=== PATIENT | male | born 1965 | race Two or more races ===

== ENCOUNTER → 2016-07-06 | Outpatient (CLI) | payer OTHER ==
[2016-07-06 11:53] LABS: GFR 78.5
[2016-07-07 03:13] LABS: RHEUMATOID FACTOR <10.0 IU/mL (0.0-13.9)
== END | disposition home or self-care (01) ==
LOC: LAB 11:21
PROVIDERS: ATTEND Psychiatry & Neurology Neurology
DX: G62.89 Other specified polyneuropathies (principal)
CPT/HCPCS: 36415; 82565; 84443; 84520; 86431

== ENCOUNTER → 2016-08-10 | Outpatient (CLI) | payer OTHER ==
--- NOTE | 2016-08-10 13:23 | RAD ---
PROCEDURE MR of the left knee HISTORY Chronic left knee pain. History of ACL graft tear. TECHNIQUE Standard noncontrast images are obtained. COMPARISON None FINDINGS Degenerative tear of the medial meniscus. Mild signal within the lateral meniscus with probable mild degenerative tearing. There are changes of anterior cruciate ligament reconstruction with surgical artifact signal at femoral and tibial tunnels. Graft is not visualized, compatible with a recurrent rupture. The lack of much edema or pivot-shift bone injuries suggest chronic duration. Posterior cruciate ligament intact. Medial collateral ligament intact. Iliotibial band unremarkable. Fibular collateral ligament intact. Biceps femoris and popliteus tendons are intact. Extensor mechanism is intact. Trace joint effusion. No evidence of osteochondral loose body. There is tricompartmental osteoarthritis. Chondromalacia is severe at the medial joint compartment and patellofemoral joint compartment. Chondromalacia is severe at the posterior aspect of the lateral joint compartment. No bone lesion. No acute fracture. Small septated Oswald cyst. IMPRESSION 1. Medial meniscal tear. 2. Probable lateral meniscal tear. 3. 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 4. Severe primary osteoarthritis. Electronically signed by: Kane Hassan MD (Aug 10, 2016 13:22:21)
== END | disposition home or self-care (01) ==
LOC: MRI 07:29
PROVIDERS: ATTEND Orthopaedic Surgery Sports Medicine
DX: T84.89XA Other specified complication of internal orthopedic prosthetic devices, implants and grafts, initial encounter (principal)
CPT/HCPCS: 73721

== ENCOUNTER → 2017-01-07 | Outpatient (CLI) | payer OTHER ==
[2017-01-07 16:56] LABS: CREATININE 1.3 mg/dL (0.7-1.3); GFR 57.7
== END | disposition home or self-care (01) ==
LOC: LAB 16:23
PROVIDERS: ATTEND Psychiatry & Neurology Neurology
DX: G62.89 Other specified polyneuropathies (principal)
CPT/HCPCS: 36415; 82565; 84450; 84460; 84520

== ENCOUNTER → 2017-04-06 | Outpatient (CLI) | payer OTHER ==
[2017-04-06 17:08] LABS: ALT (SGPT) 74 U/L (16-63); AST (SGOT) 37 U/L (15-37); CREATINE KINASE 189 U/L (39-308)
== END | disposition home or self-care (01) ==
LOC: LAB 16:30
PROVIDERS: ATTEND Psychiatry & Neurology Neurology
DX: R74.0 Nonspecific elevation of levels of transaminase and lactic acid dehydrogenase [LDH] (principal); M19.90 Unspecified osteoarthritis, unspecified site
CPT/HCPCS: 36415; 82550; 84450; 84460

== ENCOUNTER → 2017-10-26 | Outpatient (CLI) | payer BC, OTHER ==
[2017-10-26 17:40] LABS: VITAMIN-B12 505 pg/mL (247-911)
[2017-10-26 17:53] LABS: HEPATITIS B SURFACE AG Nonreactive (Nonreactive)
[2017-10-26 18:21] LABS: HEPATITIS C AB Nonreactive (Nonreactive)
[2017-10-26 18:28] LABS: HEPATITIS B SURFACE AB Nonreactive
[2017-10-29 09:24] LABS: ARSENIC UR 14 ug/L (0-50); CADMIUM UR None Detected ug/L (None detected); LEAD UR None Detected ug/L (0-49); MERCURY UR None Detected ug/L (0-19)
== END | disposition home or self-care (01) ==
LOC: LAB 16:15
DX: G62.89 Other specified polyneuropathies (principal)
CPT/HCPCS: 36415; 82306; 82607; 86704; 86706; 86803; 87340

== ENCOUNTER → 2018-05-06 | Outpatient (CLI) | payer BC ==
[2018-05-06 13:34] LABS: BASO % 1 % (0-3); EOS # 0.2 x10^3/uL (0.0-0.7); EOS % 3 % (0-3); HEMATOCRIT 44.3 % (39.0-53.0); HEMOGLOBIN 14.8 g/dL (13.0-17.5); LYMPH % 34 % (24-48); MEAN CORPUSCULAR HEMOGLOBIN 31 pg (25-35); MEAN CORPUSCULAR HGB CONC 33 g/dL (31-37); MEAN CORPUSCULAR VOLUME 94 fL (79-100); MONO # 0.7 x10^3/uL (0.0-1.1); MONO % 12 % (0-9); NEUT % 51 % (31-73); PLATELET COUNT 205 x10^3/uL (140-400); RED BLOOD COUNT 4.72 x10^6/uL (4.30-5.70); RED CELL DISTRIBUTION WIDTH 14.5 % (11.5-14.5); WHITE BLOOD COUNT 5.9 x10^3/uL (4.0-11.0)
[2018-05-06 13:38] LABS: CREATININE 0.9 mg/dL (0.7-1.3); GFR 87.9
== END | disposition home or self-care (01) ==
LOC: LAB 13:01
PROVIDERS: ATTEND Psychiatry & Neurology Neurology
DX: G62.89 Other specified polyneuropathies (principal); M19.90 Unspecified osteoarthritis, unspecified site
CPT/HCPCS: 36415; 82565; 82947; 84450; 84460; 84520; 85025

== ENCOUNTER → 2018-11-22 | Outpatient (CLI) | payer BC ==
[2018-11-22 15:46] LABS: BASO % 1 % (0-3); EOS # 0.1 x10^3/uL (0.0-0.7); EOS % 2 % (0-3); HEMATOCRIT 43.5 % (39.0-53.0); HEMOGLOBIN 14.8 g/dL (13.0-17.5); LYMPH # 1.7 x10^3/uL (1.0-4.8); LYMPH % 33 % (24-48); MEAN CORPUSCULAR HEMOGLOBIN 33 pg (25-35); MEAN CORPUSCULAR HGB CONC 34 g/dL (31-37); MEAN CORPUSCULAR VOLUME 96 fL (79-100); MONO # 0.4 x10^3/uL (0.0-1.1); MONO % 8 % (0-9); NEUT # 2.8 x10^3uL (1.8-7.7); NEUT % 55 % (31-73); PLATELET COUNT 169 x10^3/uL (140-400); RED BLOOD COUNT 4.52 x10^6/uL (4.30-5.70); RED CELL DISTRIBUTION WIDTH 13.3 % (11.5-14.5); WHITE BLOOD COUNT 5.1 x10^3/uL (4.0-11.0)
[2018-11-22 16:31] LABS: ALBUMIN 3.9 g/dL (3.4-5.0); ALBUMIN/GLOBULIN RATIO 1.3 (1.0-1.7); GFR 77.9; POTASSIUM 4.3 mmol/L (3.5-5.1); TOTAL BILIRUBIN 0.5 mg/dL (0.2-1.0)
== END | disposition home or self-care (01) ==
LOC: LAB 15:07
PROVIDERS: ATTEND Psychiatry & Neurology Neurology
DX: G62.89 Other specified polyneuropathies (principal)
CPT/HCPCS: 36415; 80053; 82550; 85025

== ENCOUNTER → 2019-02-20 | Outpatient (CLI) | payer BC ==
--- NOTE | 2019-02-21 11:02 | SLEEP ---
DATE OF STUDY: 02/20/2019 SLEEP STUDY REFERRING PHYSICIAN: Alex Church MD PRIMARY CARE PHYSICIAN: Dr. Da Silva. The patient is 53-year-old who weighs 185 pounds with a BMI of 29. The patient had a history of sleep apnea, for which he has been on CPAP at 11 cm water. On a recent followup, he was noted to have increased snoring on current pressure and as a result, he was referred back for reassessment of his sleep apnea. During the night study, the patient spent 406 minutes in bed and slept for 396 minutes with a normal sleep efficiency of 98%. Sleep latency was short at 1 minute with a REM latency of 142 minutes. Sleep architecture showed normal stage 1 and stage 2 sleep, increased slow wave and normal REM sleep. EKG monitoring revealed normal sinus rhythm, average heart rate was 60 beats per minute, no sustained arrhythmias observed. No clinically significant PLM seen. The patient was started on CPAP at 7 cm water, as he was unable to tolerate lower pressure. The patient did well at 9 and 10 cm water. At the final pressure of 10 cm water, the patient slept for 48 minutes. The patient had supine as well as REM sleep. The patient's AHI was reduced to 0 per hour and oxygen saturation remained above 95%. The patient uses a small size full face mask. IMPRESSION: 1. Sleep apnea diagnosed by previous sleep study. 2. No clinically significant periodic limb movements. RECOMMENDATIONS: 1. CPAP at 10 cm water, completely eliminated the patient's sleep apnea and should be used on a nightly basis. 2. Follow up in 4-6 weeks to assess compliance and to document clinical improvement. 3. Weight loss to ideal body weight is recommended. 4. Avoid [employer] depressants. 5. Cautioned regarding driving until symptoms of sleep apnea resolve with current CPAP pressure. 6. If the patient continues to have hypersomnia while on therapeutic CPAP, then he should be further evaluated to rule out any coexisting disorder such as narcolepsy or idiopathic hypersomnia. ALEX CHURCH MD DR: CECY/brent JOB#: [id number] / [id number] MEREDITH
== END | disposition home or self-care (01) ==
LOC: RT 19:13
PROVIDERS: ATTEND Internal Medicine Critical Care Medicine
DX: G47.30 Sleep apnea, unspecified (principal)
CPT/HCPCS: 95811

== ENCOUNTER → 2019-03-06 | Outpatient (CLI) | payer BC ==
--- NOTE | 2019-03-06 18:40 | RAD ---
Examination: CALCANEUS BILAT History: Heel pain Comparison/Correlation: None Findings: 2 view exam of the right calcaneus in 2 view examination left calcaneus were performed. Bilateral enthesopathy at the distal Achilles tendon attachment site noted. Right os trigonum is present. The graft very small calcaneal spurs bilaterally are present. No fracture or bony destructive findings. Visualized joint spaces are adequate. Impression: No suspicious process. Electronically signed by: Phil Gloria MD (03/06/2019 6:37 PM) [facility]
== END | disposition home or self-care (01) ==
LOC: RAD 12:06
PROVIDERS: ATTEND Psychiatry & Neurology Neurology
DX: M77.32 Calcaneal spur, left foot (principal); M77.31 Calcaneal spur, right foot; M76.62 Achilles tendinitis, left leg; M76.61 Achilles tendinitis, right leg
CPT/HCPCS: 73650

== ENCOUNTER → 2019-06-22 | Outpatient (CLI) | payer BC ==
--- NOTE | 2019-06-22 16:20 | RAD ---
Carotid doppler ultrasound History: Hypertension, carotid artery disease Multiple grayscale, color, and duplex spectral analysis waveform sonographic images were acquired of the carotid, subclavian, and vertebral arteries. Comparison: None Findings: RIGHT: PSV cm/sec EDV cm/sec Common carotid artery 141 31 Maximal internal carotid artery 96 17 External carotid artery 108 Vertebral artery 33 ICA/CCA ratio 0.68 LEFT: PSV cm/sec EDV cm/sec Common carotid artery 94 14 Maximum internal carotid artery 111 26 External carotid artery 131 Vertebral artery 33 ICA/CCA ratio 1.18 Velocities used to determine stenosis are known to correlate with NASCET angiographic criteria. There is antegrade flow in the bilateral vertebral arteries. No significant stenosis is demonstrated on grayscale or color images. There is a likely node of the left neck about 1.5 x 0.7 x 1.1 cm. Impression: 1. There is no evidence of a hemodynamically significant stenosis of the cervical internal carotid arteries. 2. There is a nonspecific node of the visualized left neck although not considered significantly enlarged in short axis dimension. Electronically signed by: Izaiah Ford MD (06/22/2019 4:17 PM) [id number]
== END | disposition home or self-care (01) ==
LOC: US 15:13
PROVIDERS: ATTEND Psychiatry & Neurology Neurology
DX: I25.10 Atherosclerotic heart disease of native coronary artery without angina pectoris (principal); I77.9 Disorder of arteries and arterioles, unspecified; I10 Essential (primary) hypertension
CPT/HCPCS: 93880

== ENCOUNTER → 2019-07-26 | Outpatient (CLI) | payer BC ==
--- NOTE | 2019-07-26 09:02 | CARD ---
MR#: [id number] Date of Study: 07/26/2019 Ordering Physician: ALAN MOJICA, Referring Physician: ALAN MOJICA Tech: Mirna Tello RDCS APPROVED REPORT EXAM: Two-dimensional and M-mode echocardiogram with Doppler and color Doppler. Other Information Quality : Good INDICATION Exertional Dyspnea 2D DIMENSIONS RVDd3.1 (2.9-3.5cm)Left Atrium(2D)3.1 (1.6-4.0cm) IVSd0.7 (0.7-1.1cm)Aortic Root(2D)3.0 (2.0-3.7cm) LVDd4.7 (3.9-5.9cm)LVOT Diameter2.0 (1.8-2.4cm) PWd0.9 (0.7-1.1cm)LVDs3.6 (2.5-4.0cm) FS (%) 27.0 %SV45.3 ml LVEF(%)55.0 (>50%) Aortic Valve AoV Peak Melvin.132.0cm/sAoV VTI26.1cm AO Peak GR.7.0mmHgLVOT Peak Melvin.115.6cm/s LVOT VTI 25.48cmAO Mean GR.3mmHg LILY (VMAX)2.00pg4LMH (VTI)3.17cm2 Mitral Valve MV E Raogogsc50.0cm/sMV DECEL [id number] MV A Wlvvchun50.6cm/sMV FVJ82lq E/A Ratio1.5MVA (PHT)3.52cm2 TDI E/Lateral E'9.8E/Medial E'10.7 Tricuspid Valve TR P. Kqqteyit504nf/sRAP [id number] TR Peak Gr.92tjWrOPNT74xiMv Pulmonary Vein S1 Hfijwjqo46.9cm/sD2 Fkbwdhyr61.2cm/s LEFT VENTRICLE The left ventricle is normal size. There is normal left ventricular wall thickness. The left ventricu lar systolic function is normal. The Ejection Fraction is 55-60%. There is normal LV segmental wall m otion. RIGHT VENTRICLE The right ventricle is normal size. The right ventricular systolic function is normal. ATRIA The left atrium size is normal. The right atrium size is normal. The interatrial septum is intact wit h no evidence for an atrial septal defect or patent foramen ovale as noted on 2-D or Doppler imaging. AORTIC VALVE The aortic valve is calcified but opens well. Doppler and Color Flow revealed no significant aortic r egurgitation. There is no significant aortic valvular stenosis. MITRAL VALVE The mitral valve is calcified but opens well. There is no evidence of mitral valve prolapse. There is no mitral valve stenosis. Doppler and Color-flow revealed trace mitral regurgitation. TRICUSPID VALVE The tricuspid valve is normal in structure and function. Doppler and Color Flow revealed mild tricusp id regurgitation. The PA pressure was estimated at 25 mmHg. There is no tricuspid valve stenosis. PULMONIC VALVE The pulmonic valve is not well visualized. Doppler and Color Flow revealed no pulmonic valvular regur gitation. There is no pulmonic valvular stenosis. GREAT VESSELS The aortic root is normal in size. The ascending aorta is normal in size. The IVC is normal in size a nd collapses >50% with inspiration. PERICARDIAL EFFUSION There is no evidence of significant pericardial effusion. Critical Notification Critical Value: No <Conclusion> The left ventricular systolic function is normal. The Ejection Fraction is 55-60%. There is normal LV segmental wall motion. Trace mitral regurgitation. Mild tricuspid regurgitation. The PA pressure was estimated at 25 mmHg. There is no evidence of significant pericardial effusion. Signed by : Alan Mojica, Electronically Approved : 07/26/2019 09:02:16
== END ==
LOC: ECHO 07:50
PROVIDERS: ATTEND Internal Medicine Cardiovascular Disease
DX: I08.3 Combined rheumatic disorders of mitral, aortic and tricuspid valves (principal)
CPT/HCPCS: 93306

== ENCOUNTER → 2019-08-02 | Outpatient (CLI) | payer BC ==
[2019-08-02 11:22] LABS: ALBUMIN 3.8 g/dL (3.4-5.0); ALBUMIN/GLOBULIN RATIO 1.2 (1.0-1.7); CALCIUM 9.1 mg/dL (8.5-10.1); CREATININE 0.9 mg/dL (0.7-1.3); GFR 87.6; POTASSIUM 4.5 mmol/L (3.5-5.1); TOTAL BILIRUBIN 0.5 mg/dL (0.2-1.0)
== END | disposition home or self-care (01) ==
LOC: LAB 10:01
PROVIDERS: ATTEND Psychiatry & Neurology Neurology
DX: G62.89 Other specified polyneuropathies (principal); I77.9 Disorder of arteries and arterioles, unspecified
CPT/HCPCS: 36415; 80053; 80061

== ENCOUNTER → 2020-05-14 | Outpatient (CLI) | payer BC ==
[2020-05-14 10:32] LABS: BASO % 1 % (0-3); EOS # 0.1 x10^3/uL (0.0-0.7); EOS % 3 % (0-3); HEMATOCRIT 45.5 % (39.0-53.0); HEMOGLOBIN 15.5 g/dL (13.0-17.5); LYMPH # 1.3 x10^3/uL (1.0-4.8); LYMPH % 32 % (24-48); MEAN CORPUSCULAR HEMOGLOBIN 33 pg (25-35); MEAN CORPUSCULAR HGB CONC 34 g/dL (31-37); MEAN CORPUSCULAR VOLUME 95 fL (79-100); MONO # 0.4 x10^3/uL (0.0-1.1); MONO % 10 % (0-9); NEUT # 2.3 x10^3/uL (1.8-7.7); NEUT % 55 % (31-73); PLATELET COUNT 158 x10^3/uL (140-400); RED BLOOD COUNT 4.78 x10^6/uL (4.30-5.70); RED CELL DISTRIBUTION WIDTH 13.6 % (11.5-14.5); WHITE BLOOD COUNT 4.3 x10^3/uL (4.0-11.0)
[2020-05-16 13:12] LABS: ALPHA 1 0.2 g/dL (0.0-0.4); ALPHA 2 0.5 g/dL (0.4-1.0); GAMMA 0.8 g/dL (0.4-1.8); PROTEIN TOTAL 6.5 g/dL (6.0-8.5); SPEP AG RATIO 1.6 (0.7-1.7)
[2020-05-16 15:12] LABS: ANA INTERP Negative (.)
== END ==
LOC: LAB 09:48
PROVIDERS: ATTEND Nurse Practitioner Family
DX: G62.89 Other specified polyneuropathies (principal)
CPT/HCPCS: 36415; 82607; 82746; 83540; 83550; 84165; 84443; 85025; 86038; 86141